=== PATIENT | male | born 1985 | race African-American/Black ===

== ENCOUNTER → 2019-07-18 | Emergency (ER) | payer MEDICAID ==
[~2019-07-18] VITALS: Ht 165.1 cm; Wt 68.0 kg
[~2019-07-18] MED LIST: AMLODIPINE BESYL5 MG ORAL; BENADRYL ALLERG25 M1 PO; BIKTARVY 50-201 EACH PO; HYDROCORTISONE28 G2 TP
--- NOTE | 2019-07-18 08:17 | NUR ---
ED Nurse Note: Pt ambulated to ED d/t rashes on bilateral upper and lower extremities and abdomen since yesterday at 9AM. Per triage, pt took claritin but unable to relieve symptoms. Placed on bed, VSS on triage, on RA.
--- NOTE | 2019-07-18 08:20 | NUR ---
ED Nurse Note: Dr. Baig at bedside.
[2019-07-18 08:28] VITALS: BP 137/87
--- NOTE | 2019-07-18 08:34 | Emergency Room Report ---
History of Present Illness General Chief Complaint: Skin Rash/Abscess Source: Patient Present Illness HPI Disclaimer: Please note that this report is being documented using [employer] technology. This can lead to erroneous entry secondary to incorrect interpretation by the dictating instrument. HPI: 34-year-old male presents for evaluation of rash and itching. Symptoms began yesterday evening. He ate some ke chips program did never tried before. Several hours later he noted some itching and red bumps over his left arm. He took a Claritin which resolved the bumps but is complaining of itching over his back and left arm. He is scratching a lot. Denies skin breakdown, blistering. Denied any wheezing, shortness of breath, throat closure sensation , vomiting, lightheadedness, diarrhea, chest pain or other symptoms. No known allergies. Scheduled to see his PMD on the 6. Already called for an allergy referral. PMH: Denies PSH: Denies Allergies: Denies Social Hx: Denies Allergies: Coded Allergies: No Known Allergies (Unverified , 06/11/19) Nursing Documentation-PMH Past Medical History: No History, Except For Hx Hypertension: Yes Review of Systems All Other Systems: negative except mentioned in HPI Physical Exam Vital Signs Date Time Temp Pulse Resp B/P (MAP) Pulse Ox O2 Delivery O2 Flow Rate FiO2 07/18/19 08:14 97.5 97 15 137/87 (104) 97 Room Air General: Awake and alert, no acute distress HEENT: NC/AT. EOMI. Resp: Normal work of breathing, no wheezing, no stridor Skin: Intact. No rash, no urticaria, no blistering, no breakdown. No abrasions , laceration or rash over the exposed skin MSK: Normal tone and bulk. Moving all extremities. No obvious deformity. Neuro: Awake and alert. Mentating appropriately Medical Decision Making Diagnostic Impression: Primary Impression: Rash Additional Impression: Itching ER Course 34-year-old male presents for evaluation of itching and rash that is now resolved. Itching continues. May be a minor allergic reaction will treat with Benadryl and topical steroid creams. No evidence of anaphylaxis. There is no evidence of rash any longer. Will refer to PMD and mac developer for further follow -up as needed. Discussed reasons to return to the emergency department. Does not require emergent imaging or labs at this time. Last Vital Signs Date Time Temp Pulse Resp B/P (MAP) Pulse Ox O2 Delivery O2 Flow Rate FiO2 07/18/19 08:28 97.5 68 15 137/87 97 Room Air Disposition: HOME, SELF-CARE Condition: Stable Scripts Hydrocortisone 1% Oint (Hydrocortisone 1% Oint*) Y Oint 2 GM TP BID, #28 GM Prov: Rajat Baig MD 07/18/19 Diphenhydramine Hcl (BENADRYL ALLERGY) 25 Mg Tablet 25 MG PO QID for 5 Days, #30 TAB Prov: Rajat Baig MD 07/18/19 Patient Instructions: Pruritus Additional Instructions: Follow-up with your primary doctor at your already scheduled appointment on the 6. Ask for allergy referral. Stay away from that brand of bread products until we know whether or not you are allergic. Return to the emergency department any throat closure sensation, worsening rash, severe vomiting, lightheadedness, chest pain or any other changes in your health Rajat Baig MD Jul 18, 2019 08:34
[2019-07-18 08:37] VITALS: BP 134/84
--- NOTE | 2019-07-18 08:37 | NUR ---
ER DISCHARGE NOTE: pt is cleared to be discharged per ERMD, pt is aox4, on room air, with stable vital signs. pt was given dc and prescription instructions, pt was able to verbalize understanding, pt id band removed. pt is able to ambulate with steady gait. pt took all belongings.
== END | disposition home or self-care (01) ==
LOC: EMR 08:50
DX: R21 Rash and other nonspecific skin eruption (principal); L29.9 Pruritus, unspecified; I10 Essential (primary) hypertension
CPT/HCPCS: 99282